=== PATIENT | male | born 2000 | race Caucasian/White ===

== ENCOUNTER 2024-03-16 16:07 | Outpatient (RCR) | payer BC, OTHER, SELFPAY ==
--- NOTE | 2024-03-16 17:15 | OPREHPOC ---
Outpatient Therapy Plan of Care This is a Multidisciplinary Plan of Care that may contain components documented by all disciplines (PT, OT, and ST.) PT Problem 1 PT Problem #1 Knowledge Deficit PT Goal 1 Goal / Goal Update 1. independent and compliant with HEP Target Visit 6 PT Problem 2 PT Problem #2 Impaired Range of Motion PT Goal 1 Goal / Goal Update 1. patient R wrist arom to be 50% or better compared to the L wrist 2. full fist formation of the R hand Target Visit 6 PT Goal 2 Goal / Goal Update 1. patient R wrist arom to be 90% or greater compared to the L wrist Target Visit 12 PT Problem 3 PT Problem #3 Impaired Strength PT Goal 1 Goal / Goal Update 1. 4+/5 or better R wrist strength 2. 100lbs or greater R production sampler strength Target Visit 12 PT Problem 4 PT Problem #4 Impaired Functional Mobil PT Goal 1 Goal / Goal Update 1. quick dash to display 0% functional deficits 2. patient to lift and carry 25 lbs in each hand Target Visit 12
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
--- NOTE | 2024-04-13 09:12 | OPREHPOC ---
Outpatient Therapy Plan of Care This is a Multidisciplinary Plan of Care that may contain components documented by all disciplines (PT, OT, and ST.) PT Problem 1 PT Problem #1 Knowledge Deficit PT Goal 1 Goal / Goal Update 1. independent and compliant with HEP Target Visit 6 Progress Partially Met PT Goal 2 Goal / Goal Update Met to date, continue to progress Target Visit 20 PT Problem 2 PT Problem #2 Impaired Range of Motion PT Goal 1 Goal / Goal Update 1. patient R wrist arom to be 50% or better compared to the L wrist -met 2. full fist formation of the R hand -met Target Visit 6 Progress Met PT Goal 2 Goal / Goal Update 1. patient R wrist arom to be 90% or greater compared to the L wrist Target Visit 20 Progress Not Met PT Problem 3 PT Problem #3 Impaired Strength PT Goal 1 Goal / Goal Update 1. 4+/5 or better R wrist strength 2. 100lbs or greater R senior executive assistant strength Target Visit 12 Progress Not Met PT Problem 4 PT Problem #4 Impaired Functional Mobil PT Goal 1 Goal / Goal Update 1. quick dash to display 0% functional deficits 2. patient to lift and carry 25 lbs in each hand Target Visit 12 Progress Not Met
--- NOTE | 2024-04-13 09:12 | PTOPPROG ---
Assessment and note entered by Rosie Grant, PT Evaluation Information Assessment Status Progress Diagnosis R wrist, fracture of distal radius ICD-10 Condition Codes (PT) Z47.89 Other ICD-10 Condition Codes ( Z47.89, S52.501D PT) Onset 01/31/24 Subjective Information Jonah Darby reports that his right wrist and arm are doing well and he has not had a lot of pain recently. He is not using his right arm for any lifting and wears his brace when he is not in PT. He notes stiffness in the right wrist and occasional popping. Assessment PT Clinical Summary Jonah Darby has completed 10 skilled PT visits following a right distal radius and wrist fracture with surgical stabilization performed on 02/04/24. He is nearly 10 weeks post op and has been completed active, active assisted, and passive ROM of the right wrist, forearm, and elbow. He is demonstrating improvements in ROM overall and remains mildly limited with right wrist flexion, extension, and radial deviation. Treatment has not included strengthening per MD orders. He is likely weak in the right UE and will continue to benefit from skilled PT to further address ROM, strength, and functional abilities. Plan of Care Interventions Hot Pack/Cold Pack,Manual Therapy,Patient/ Caregiver Educati,Therapeutic Exercise PT Services Indicated Yes Treatment Frequency and Continue skilled PT 2 times a week for 10 Duration additional visits These treatments will address the objective and functional deficits as defined above. The patient will be advanced safely and appropriately in order for the patient to progress towards his/her prior level of function. Additional exercises will be introduced and as well as a comprehensive home exercise program upon discharge, if needed, ?to ensure carryover of functional gains achieved in the clinic. This treatment plan has been reviewed and agreement upon by the patient.
--- NOTE | 2024-04-14 09:06 | PCPTNOTE ---
spoke with Navin Gonzalez via text message today 04/14/24 who has approved the beginning of strengthening of the patients wrist and hand.
--- NOTE | 2024-05-19 17:06 | OPREHPOC ---
Outpatient Therapy Plan of Care This is a Multidisciplinary Plan of Care that may contain components documented by all disciplines (PT, OT, and ST.) PT Problem 1 PT Problem #1 Knowledge Deficit PT Goal 1 Goal / Goal Update 1. independent and compliant with HEP Target Visit 6 Progress Met PT Goal 2 Goal / Goal Update Met to date, continue to progress Target Visit 20 Progress Met PT Problem 2 PT Problem #2 Impaired Range of Motion PT Goal 1 Goal / Goal Update 1. patient R wrist arom to be 50% or better compared to the L wrist -met 2. full fist formation of the R hand -met Target Visit 6 Progress Met PT Goal 2 Goal / Goal Update 1. patient R wrist arom to be 90% or greater compared to the L wrist Target Visit 20 Progress Met PT Problem 3 PT Problem #3 Impaired Strength PT Goal 1 Goal / Goal Update 1. 4+/5 or better R wrist strength -met 2. 100lbs or greater R lean leader strength -not met Target Visit 12 Progress Partially Met PT Problem 4 PT Problem #4 Impaired Functional Mobility PT Goal 1 Goal / Goal Update 1. quick dash to display 0% functional deficits - not met (4.5%) 2. patient to lift and carry 25 lbs in each hand -met Target Visit 12 Progress Partially Met
--- NOTE | 2024-05-19 17:06 | PTOPDC ---
Assessment and note entered by Rosie Grant, PT Evaluation Information Assessment Status Discharge Diagnosis s/p ORIF for R distal radius fx ICD-10 Condition Codes (PT) Encounter for other orthopedic aftercare Z47.89 Other ICD-10 Condition Codes ( S52.501D PT) Onset 01/31/24 Subjective Information Jonah Darby reports when he saw his surgeon last week he was released. He has been noting no pain in the right wrist and has returned to all previous activities and full duty work without difficulty. He denies pain in the right wrist but still has stiffness. He has been performing his HEP every day. He will be out of town the next 3 weeks for work. Reported Pain Level Pain Score 0: Self Report Assessment PT Clinical Summary Jonah Darby has completed 19 skilled PT visits following a distal right radius fracture with ORIF . He is reporting no pain and has returned to his previous activity level. He demonstrates improved wrist and elbow ROM, improved right wrist and elbow strength, improved web content executive strength, and improved functional activities. He has met 80% of his goals and made adequate progress to the two not met. He will be discharged. Plan of Care PT Services Indicated No
== END 2024-05-19 17:10 | disposition home or self-care (01) ==
LOC: CHSPT 16:07
PROVIDERS: Visit Provider Nurse Practitioner Family
DX: Z47.89 Encounter for other orthopedic aftercare (principal); S52.501D Unspecified fracture of the lower end of right radius, subsequent encounter for closed fracture with routine healing
CPT/HCPCS: 97110; 97140; 97150; 97161; 97750